=== PATIENT | female | born 1995 | race Caucasian/White ===

== ENCOUNTER 2016-12-22 06:43 | Emergency (ER) | payer OTHER, MEDICAID ==
[~2016-12-22] VITALS: Ht 162.6 cm; Wt 63.0 kg
[2016-12-22] MEDS ORDERED: TETANUS, DIPHTHERIA, PERTUSSIS VAC/PF 0.5ML (>7YR OLD) IM ONE (07:30)
[2016-12-22] MEDS ORDERED: HYDROCODONE/ACETAMINOPHEN 5/325MG TABLET PO ONE (07:30)
[2016-12-22] MEDS ORDERED: KETOROLAC 60MG/2ML VIAL IM ONE (07:30)
[2016-12-22 07:52] LABS: HEMATOCRIT. 38.1 % (36.0-48.0); HEMOGLOBIN. 12.9 g/dL (12.0-16.0); MEAN CORPUSCULAR HEMOGLOBIN 29.9 pg (28.0-32.0); MEAN CORPUSCULAR VOLUME 88.1 fL (81.0-99.0); PLATELET 227 x1000/uL (130-400); RED BLOOD CELL COUNT 4.33 mill/uL (4.2-5.4); RED CELL DISTRIBUTION WIDTH 12.9 % (11.6-14.6)
[2016-12-22 07:59] LABS: CARBON DIOXIDE 27 mEq/L (21-32); CHLORIDE 108 mEq/L (98-107)
[2016-12-22 08:02] LABS: ETHANOL BLOOD < 10 mg/dL
[2016-12-22 09:29] LABS: HCG SCREEN NEGATIVE
[2016-12-22 10:39] LABS: PLATELET ESTIMATE NORMAL
[2016-12-22 12:32] VITALS: BP 106/79
== END 2016-12-22 13:36 | disposition home or self-care (01) ==
LOC: ER 06:43
DX: S00.83XA Contusion of other part of head, initial encounter (principal); S80.01XA Contusion of right knee, initial encounter; Z88.0 Allergy status to penicillin; V49.9XXA Car occupant (driver) (passenger) injured in unspecified traffic accident, initial encounter; Y93.89 Activity, other specified; Y92.410 Unspecified street and highway as the place of occurrence of the external cause; Y99.8 Other external cause status
CPT/HCPCS: 36415; 70450; 70486; 73562; 80048; 84703; 85007; 85027; 90471; 90715; 96372; 99285; G0482; J1885